=== PATIENT | female | born 1980 | race Caucasian/White ===

== ENCOUNTER → 2016-08-27 | Outpatient (CLI) | payer BC ==
[~2016-08-27] MED LIST: AMOXICILLIN 50500 MG PO; BCP TD; BENADRYL25 M2 PO; CEPHALEXIN500 M1 PO; CIPRO 500MG TA500 MG PO; COLACE 100100 MG/CAP PO; DARVOCET N; IBU800 M1 PO; NORCO 325 MG-7.1 TAB PO; PERCOCET 325 MG1 TA2 PO; PYRIDIUM 100MG100 MG PO; TOPROL XL25 MG PO; VENTOLIN0.09 MG IH
== END ==
LOC: MC.RAD 09:47
DX: Z12.31 Encounter for screening mammogram for malignant neoplasm of breast (principal); D24.2 Benign neoplasm of left breast; D24.1 Benign neoplasm of right breast

== ENCOUNTER → 2017-09-28 | Outpatient (CLI) | payer BC | LOC: COL.RAD 07:21 | DX: C56.1 Malignant neoplasm of right ovary (principal); C56.2 Malignant neoplasm of left ovary; K76.0 Fatty (change of) liver, not elsewhere classified | CPT/HCPCS: Q9967 ==